=== PATIENT | male | born 1950 | race Caucasian/White ===

== ENCOUNTER 2020-10-26 12:51 | Day surgery (SDC) | payer MEDICARE ==
[~2020-10-26] VITALS: Ht 180.3 cm; Wt 81.6 kg
[~2020-10-26 12:51] MED LIST: AMLO-150 PO; ATOR20TA37 PO; CITA20TA9 PO; DOCU-131 PO; MECL-101 PO; PANT40TA6 PO; SUCR1TAB33 PO; TAMS-11 PO; ZONI100C29 PO
[2020-10-26 13:22] VITALS: BP 122/78
[2020-10-26] MEDS ORDERED: CHLORHEXIDINE 15 ML UDC ONE (13:23)
[2020-10-26] MEDS ORDERED: HYDR-2214 PO (13:53)
[2020-10-26] MEDS ORDERED: AMLO-150 PO (13:53)
[2020-10-26] MEDS ORDERED: CALC-534 PO (13:53)
[2020-10-26] MEDS ORDERED: CHOL10003 PO (13:53)
[2020-10-26] MEDS ORDERED: ATOR40TA78 PO (13:53)
[2020-10-26] MEDS ORDERED: TAMS-11 PO (13:53)
[2020-10-26] MEDS ORDERED: CLOP75TA52 PO (13:53)
[2020-10-26] MEDS ORDERED: ZONI100C29 PO (13:53)
[2020-10-26] MEDS ORDERED: ASCO100018 PO (13:53)
[2020-10-26] MEDS ORDERED: MELA10CA PO (13:53)
[2020-10-26] MEDS ORDERED: PANT20TA4 PO (13:53)
[2020-10-26] MEDS ORDERED: CLIN300C9 PO (13:53)
[2020-10-26] MEDS ORDERED: ACET325T14 PO (13:55)
[2020-10-26] MEDS ORDERED: EPINEPHRINE 1 MG/ML, 1ML ONE (13:56)
[2020-10-26] MEDS ORDERED: BACITRACIN 50,000 UNIT ONE (13:56)
[2020-10-26] MEDS ORDERED: BUPIVACAINE/PF 0.5% ONE (13:56)
[2020-10-26] MEDS ORDERED: LACTATED RINGERS 1,000 ML IV SCH (14:00)
[2020-10-26] MEDS ORDERED: CHLORHEXIDINE 15 ML UDC PO ONE (14:00)
[2020-10-26] MEDS ORDERED: MIDAZOLAM 1 MG/ML, 2ML ONE (14:19)
[2020-10-26] MEDS ORDERED: ONDANSETRON 2MG/ML, 2ML IVPush PRN (14:30)
[2020-10-26] MEDS ORDERED: HYDROmorphone 1 MG/ML, 1ML INJ IVPush PRN (14:30)
[2020-10-26] MEDS ORDERED: METOCLOPRAMIDE 5 MG/ML, 2ML IVPush PRN (14:30)
[2020-10-26] MEDS ORDERED: hydrALAzine 20 MG/ML, 1ML IV PRN (14:30)
[2020-10-26] MEDS ORDERED: ACETAMINOPHEN 325 MG TABLET PO PRN (14:30)
[2020-10-26] MEDS ORDERED: PROMETHAZINE 25 MG/ML, 1ML IVPush PRN (14:30)
[2020-10-26] MEDS ORDERED: OXYcodone 5 MG/5 ML ORAL.SOL UDC PO PRN (14:30)
[2020-10-26] MEDS ORDERED: DIAZEPAM 5 MG/ML, 2ML IVPush PRN (14:30)
[2020-10-26] MEDS ORDERED: DIPHENHYDRAMINE 50 MG/ML, 1ML IVPush PRN (14:30)
[2020-10-26] MEDS ORDERED: MEPERIDINE/PF 25MG/0.5ML IVPush PRN (14:30)
[2020-10-26] MEDS ORDERED: LABETALOL 5MG/ML, 20ML IV PRN (14:30)
[2020-10-26] MEDS ORDERED: PROPOFOL 10 MG/ML, 20ML ONE (14:45)
[2020-10-26] MEDS ORDERED: ONDANSETRON 2MG/ML, 2ML ONE (14:45)
[2020-10-26] MEDS ORDERED: CEFAZOLIN 1,000 MG ONE (14:45)
[2020-10-26] MEDS ORDERED: FENTANYL PF 100 MCG/2ML ONE (15:39)
[2020-10-26] MEDS ORDERED: OXYcodone 5 MG/5 ML ORAL.SOL UDC ONE (15:39)
[2020-10-26] MEDS: FENTANYL PF 100 MCG/2ML IV PRN ×2 (15:40→15:45)
[2020-10-26] MEDS ORDERED: FENTANYL PF 250 MCG/5ML ONE (17:47)
== END 2020-10-26 16:45 | disposition home or self-care (01) ==
LOC: OUT 12:51
PROVIDERS: ATTEND Orthopaedic Surgery
DX: M70.21 Olecranon bursitis, right elbow (principal); I10 Essential (primary) hypertension; E78.5 Hyperlipidemia, unspecified; N40.0 Benign prostatic hyperplasia without lower urinary tract symptoms; Z20.822 Contact with and (suspected) exposure to COVID-19; Z79.899 Other long term (current) drug therapy; Z88.0 Allergy status to penicillin
CPT/HCPCS: 24105; 87015; 87070; 87075; 87077; 87102; 87116; 87147; 87186; 87205; 87206; 93005; J0171; J0690; J2250; J2405; J2704; J3010; J7120; U0003; U0005